=== PATIENT | female | born 1985 | race Hispanic/Latino ===

== ENCOUNTER → 2016-04-24 | Outpatient (REF) | payer OTHER ==
[~2016-04-24] MED LIST: ACET500C PO; ACET50TA PO; COLA100C PO; IBUP60TA PO; PREN1TAB11 PO
== END ==
LOC: M LAB REF 17:08
PROVIDERS: ATTEND Physician Assistant
DX: J06.9 Acute upper respiratory infection, unspecified (principal)

== ENCOUNTER → 2016-07-05 | Outpatient (CLI) | payer OTHER ==
[~2016-07-05] MED LIST changes: -COLA100C PO; +COLA100C3 PO
[2016-07-05 14:12] LABS: ALBUMIN 4.2 GM/DL (3.2-5.2); ALKALINE PHOSPHATASE 117 U/L (45-117); ALT/SGPT 18 U/L (12-78); ANION GAP 7 MEQ/L (8-16); AST/SGOT 9 U/L (15-37); BILIRUBIN,TOTAL 0.5 MG/DL (0.2-1.0); BLOOD UREA NITROGEN 16 MG/DL (7-18); CALCIUM LEVEL 9.1 MG/DL (8.5-10.1); CARBON DIOXIDE LEVEL 29 MEQ/L (21-32); CHLORIDE LEVEL 104 MEQ/L (98-107); CREATININE FOR GFR 0.51 MG/DL (0.55-1.02); FREE T4 1.07 NG/DL (0.76-1.46); GLOMERULAR FILTRATION RATE > 60.0 (>60); GLUCOSE, FASTING 94 MG/DL (70-105); POTASSIUM SERUM 4.1 MEQ/L (3.5-5.1); SODIUM LEVEL 140 MEQ/L (136-145); TOTAL PROTEIN 7.7 GM/DL (6.4-8.2)
[2016-07-05 15:06] LABS: BASO % 0.5 % (0.0-1.0); EOS # 0.1 K/mm3 (0.0-0.50); EOS % 1.2 % (0.0-3.0); LARGE UNSTAINED CELL # 0.1 K/mm3 (0.0-0.4); LARGE UNSTAINED CELL % 1.4 % (0.0-4.0); LYMPH # 1.6 K/mm3 (1.5-4.5); MEAN CORPUSCULAR HEMOGLOBIN 28.9 pg (27.0-33.0); MEAN CORPUSCULAR VOLUME 87.4 fl (80.0-96.0); MONO # 0.2 K/mm3 (0.0-0.8); MONO % 4.8 % (0.0-5.0); PLATELET COUNT, AUTOMATED 193 k/mm3 (150-450); RED CELL DISTRIBUTION WIDTH 12.8 % (11.5-14.5); WHITE BLOOD COUNT 4.9 K/mm3 (4.0-10.0)
== END ==
LOC: M SMT 09:30
PROVIDERS: ATTEND Family Medicine
DX: Z13.0 Encounter for screening for diseases of the blood and blood-forming organs and certain disorders involving the immune mechanism (principal); Z13.29 Encounter for screening for other suspected endocrine disorder

== ENCOUNTER → 2016-11-12 | Outpatient (REF) | payer OTHER ==
[~2016-11-12] MED LIST changes: -COLA100C3 PO; +COLA100C5 PO
== END ==
LOC: M SFHCLERA 16:06
PROVIDERS: ATTEND Nurse Practitioner Family
DX: R30.0 Dysuria (principal)